=== PATIENT | male | born 1960 | race Caucasian/White ===

== ENCOUNTER 2019-10-04 21:00 | Inpatient (IN) | payer OTHER ==
[~2019-10-04] VITALS: Ht 177.8 cm; Wt 109.6 kg
[2019-10-04 21:46] VITALS: BP 145/95
[2019-10-04] MEDS ORDERED: ONDANSETRON ODT 4 MG PO PRN (22:00)
[2019-10-04] MEDS ORDERED: POLYETHYLENE GLYCOL 17 GM PACKET PO PRN (22:00)
[2019-10-04] MEDS ORDERED: DOCUSATE 100 MG CAPSULE PO PRN (22:00)
[2019-10-04] MEDS ORDERED: BISACODYL 10 MG SUPP PR PRN (22:00)
[2019-10-04] MEDS ORDERED: PLEASE ENTER ALLERGIES MC SCH (22:30)
[2019-10-04] MEDS ORDERED: PLEASE ENTER HEIGHT AND WEIGHT MC SCH (23:30)
[2019-10-04 23:59] VITALS: BP 145/95
[2019-10-05 06:44] LABS: CULTURE INDICATED? NO; MICROSCOPIC NOT IND
[2019-10-05 07:14] VITALS: BP 165/103
[2019-10-05] MEDS: ACETAMINOPHEN 325 MG TABLET PO PRN ×2 (07:51→19:50)
[2019-10-05 07:58] LABS: CHOL/HDL RATIO 4.2; FREE T4 (FREE THYROXINE) 1.08 ng/dL (0.76-1.46); LDL/HDL RATIO 2.7 (0.5-3.0)
[2019-10-05] MEDS ORDERED: SERT100T PO (10:28)
[2019-10-05] MEDS: SERTRALINE 50MG TABLET PO SCH (10:31)
[2019-10-05 19:50] VITALS: BP 141/89
[2019-10-06 07:41] VITALS: BP 138/91
[2019-10-06] MEDS: SERTRALINE 50MG TABLET PO SCH (10:06)
[2019-10-06 19:15] VITALS: BP 149/88
[2019-10-07 07:14] VITALS: BP 150/80
[2019-10-07] MEDS: SERTRALINE 50MG TABLET PO SCH (09:11)
[2019-10-07] MEDS ORDERED: SERT50TA28 PO (11:23)
[2019-10-07] MEDS: ACETAMINOPHEN 325 MG TABLET PO PRN (11:47)
== END 2019-10-07 11:57 | disposition home or self-care (01) | DRG 885 ==
LOC: 3E 21:37
PROVIDERS: ADMIT Psychiatry & Neurology Psychosomatic Medicine; ATTEND Psychiatry & Neurology Psychosomatic Medicine
DX: F33.2 Major depressive disorder, recurrent severe without psychotic features (principal); T14.91XA Suicide attempt, initial encounter; G47.30 Sleep apnea, unspecified; D75.1 Secondary polycythemia; G51.0 Bell's palsy; E66.9 Obesity, unspecified; F10.20 Alcohol dependence, uncomplicated; Z79.899 Other long term (current) drug therapy; Z68.34 Body mass index [BMI] 34.0-34.9, adult; Z81.8 Family history of other mental and behavioral disorders; Y92.89 Other specified places as the place of occurrence of the external cause
CPT/HCPCS: 36415; 71045; 80061; 81003; 82607; 84439; 84443; 93005